=== PATIENT | female | born 1980 | race Caucasian/White ===

== ENCOUNTER 2020-07-26 03:44 | Inpatient (IN) | payer BC, SELFPAY ==
[2020-07-26] MEDS ORDERED: Metoprolol Tartrate 25 MG TAB ONE (04:39)
[2020-07-26] MEDS ORDERED: Metoprolol Tartrate 5 MG/5 ML VIAL ONE ×2 (04:39→06:50)
[2020-07-26 04:45] LABS: #Basophils 0.1 thou/uL (0.0-0.2); #Lymphocytes 3.1 thou/uL (1.20-3.40); #Monocytes 0.8 thou/uL (0.11-0.59); #Neutrophils 2.6 thou/uL (1.40-6.50); %Basophils 0.9 % (0.0-1.0); %Eosinophils 0.1 % (0.0-10.0); %Lymphocytes 47.3 % (21.0-51.0); %Monocytes 11.7 % (0.0-10.0); Hemoglobin 13.9 g/dL (12.0-16.0); Mean Corpuscular Hemoglobin 28.9 pg (27.0-31.0); Mean Corpuscular Volume 87.7 fL (78.0-98.0); Mean Platelet Volume 7.5 fL (7.4-10.4); Platelet Count 277 thou/uL (130-400); RBC Distribution Width 11.6 % (11.5-14.5); Red Blood Cell (RBC) Count 4.79 mill/uL (4.20-5.40); White Blood Cell (WBC) Count 6.5 thou/uL (4.8-10.8)
[2020-07-26 04:55] LABS: ALT (SGPT) 44 U/L (8-55); AST (SGOT) 29 U/L (5-34); Albumin 3.6 g/dL (3.5-5.0); Alkaline Phosphatase 202 U/L (40-110); Anion Gap 14 mmol/L (10-20); BUN (Urea Nitrogen) 16 mg/dL (7.0-18.7); Bilirubin, Total 0.3 mg/dL (0.2-1.2); Calc. Creatinine Clearance 0 mL/min (70-130); Calcium 8.8 mg/dL (7.8-10.44); Carbon Dioxide 25 mmol/L (22-29); Chloride 104 mmol/L (98-107); Globulin 3.5 g/dL (2.4-3.5); Glucose 101 mg/dL (70-105); Potassium 4.1 mmol/L (3.5-5.1); Protein, Total 7.1 g/dL (6.0-8.3); Sodium 139 mmol/L (136-145)
[2020-07-26 05:12] LABS: Free T4 (Free Thyroxine) 2.61 ng/dL (0.70-1.48); Thyroid Stimulating Hormone Less than 0.0025 uIU/mL (0.35-4.94)
[2020-07-26] MEDS ORDERED: Lorazepam 2 MG/ML VIAL ONE (06:48)
--- NOTE | 2020-07-26 09:10 | PDOC.HHP ---
Hospitalist HPI - History of Present Illness Fast heart rate History of Present Illness: Ms. Leal is a 39-year-old female with past medical history of degenerative disc disease, tobacco use who presents to the emergency room for evaluation of a fast heart rate. Patient believes this is related to her thyroid. Patient reports that over the past 2 years she has had an increased elevated resting heart rate of about 110. She also reports that she has had significant weight loss over the past 2 years increased appetite, and chronic diarrhea. Over the past 4 months she has noticed a bulging of her eyes, and has episodes where she temporarily has blurry vision and when she takes pressure resolve her eyes will go in different directions. She has said that her heart rate has been elevated as high as the 220s at certain points in time. She has a nurse friend who thought that her symptoms might be related to her thyroid, however patient has delayed seeking treatment since she has no health insurance. Patient does report that she had thyroid problems as a child but is unsure what these were. She has never had evaluation of her thyroid as an adult. Her mother also has a history of thyroid problems, and she does have a cousin with thyroid cancer. Emergency room initial vital signs 141/84, 103, 23, 98.3, 98% on room air. EKG showed normal sinus rhythm with no ischemic changes. TSH was less than 0.0025, T4 2.61, T3 14.99. BUNs/CR 16/0.63, sodium 139, potassium 4.1. H/H 13.9/42.0. WBC 6.5. Patient received propanolol, Lopressor, Ativan in the emergency room. Hospitalist ROS - Review of Systems Constitutional: reports: other (Weight loss). denies: fever, chills, sweats, weakness, malaise Eyes: reports: vision change, other (exopthalmos, blurry vision). denies: pain, conjunctivae inflammation, eyelid inflammation, redness ENT: denies: ear pain, ear discharge, nose pain, nose discharge, nose congestion, mouth pain, mouth swelling, throat pain, throat swelling, other Respiratory: denies: cough, dry, shortness of breath, hemoptysis, SOB with excertion, pleuritic pain, sputum, wheezing, other Cardiovascular: reports: palpitations. denies: chest pain, orthopnea, paroxysmal noc. dyspnea, edema, light headedness, other Gastrointestinal: reports: diarrhea, other (Increased appetite). denies: nausea, vomiting, abdominal pain, constipation, melena, hematochezia Genitourinary: denies: dysuria, frequency, incontinence, hematuria, retention, other Musculoskeletal: denies: neck pain, shoulder pain, arm pain, back pain, hand pain, leg pain, foot pain, other Skin: denies: rash, lesions, zahida, bruising, other Neurological: reports: other (Anxiety). denies: weakness, numbness, incoor dination, change in speech, confusion, seizures - Medication Medications: Patient is not currently on any medications Hospitalist History - Past Medical History Other Medical History: Past medical history includes Remote history of thyroid issue as a child (patient unsure) Degenerative disc disease with multiple disc injections Cervical dysplasia status post LEEP - Past Surgical History Other Surgical History: Past surgical history includes Tonsillectomy Right knee ACL repair Neck anterior fusion - Family History Other Family History: Family history includes Thyroid problems in patient's mother Cousin with thyroid cancer - Social History Smoking Status: Current every day smoker Tobacco Type: cigarettes Alcohol: reports: None Drugs: reports: marijuana Living Situation: With Family Activity level: independent ambulation - Exam General Appearance: awake alert General - other findings: Anxious, pressured speech Eye - other findings: Exophthalmos ENT: dry oral mucosa Neck: supple, symmetric, no JVD Neck - other findings: No palpable thyroid nodules Heart: no murmur, no gallops, no rubs, normal peripheral pulses Heart - other findings: Tachycardic Respiratory: CTAB, no wheezes, no rales, no ronchi, normal chest expansion, no tachypnea, normal percussion Gastrointestinal: soft, non-tender, non-distended, normal bowel sounds, no palpable masses, no hepatomegaly, no splenomegaly, no bruit Extremities: no cyanosis, clubbing Skin - other findings: Dry Neurological: cranial nerve grossly intact, normal sensation to touch, no weakness, no focal deficits, no new deficit Musculoskeletal: normal tone, normal strength, no muscle wasting Musculoskeletal - other findings: Thin Psychiatric: A&O x 3 Psychiatric - other findings: Anxious, tremulous Hospitalist Results - Labs Result Diagrams: 07/26/20 04:05 07/26/20 04:05 Lab results: WBC 6.5 thou/uL (4.8-10.8) 07/26/20 04:05 Hgb 13.9 g/dL (12.0-16.0) 07/26/20 04:05 Hct 42.0 % (36.0-47.0) 07/26/20 04:05 MCV 87.7 fL (78.0-98.0) 07/26/20 04:05 Plt Count 277 thou/uL (130-400) 07/26/20 04:05 Neutrophils % 40.0 % (42.0-75.0) L 07/26/20 04:05 Sodium 139 mmol/L (136-145) 07/26/20 04:05 Potassium 4.1 mmol/L (3.5-5.1) 07/26/20 04:05 Chloride 104 mmol/L (98-107) 07/26/20 04:05 Carbon Dioxide 25 mmol/L (22-29) 07/26/20 04:05 BUN 16 mg/dL (7.0-18.7) 07/26/20 04:05 Creatinine 0.63 mg/dL (0.6-1.1) 07/26/20 04:05 Glucose 101 mg/dL (70-105) 07/26/20 04:05 Calcium 8.8 mg/dL (7.8-10.44) 07/26/20 04:05 Total Bilirubin 0.3 mg/dL (0.2-1.2) 07/26/20 04:05 AST 29 U/L (5-34) 07/26/20 04:05 ALT 44 U/L (8-55) 07/26/20 04:05 Alkaline Phosphatase 202 U/L (40-110) H 07/26/20 04:05 Serum Total Protein 7.1 g/dL (6.0-8.3) 07/26/20 04:05 Albumin 3.6 g/dL (3.5-5.0) 07/26/20 04:05 Hospitalist H&P A/P - Plan Plan: 39-year-old female with past medical history of degenerative disc disease, cer vical dysplasia, tobacco use presents with overt hyperthyroidism. Hyperthyroidism Patient reports that over the past 2 years she has had worsening tachycardia, anxiety, weight loss, diarrhea, increased appetite, hair thinning, menstrual irregularities and recently in the past 4 months bulging of her eyes sometimes associated with blurry vision. She has a remote history of thyroid problems as a child although she is unable to remember any specifics. She has no health i nsurance and does not have a primary care provider. She has never been previously diagnosed with thyroid disorder as an adult. Patient in florid hyperthyroidism with TSH less than 0.0025, T42.61, T3 14.99. Not currently meeting criteria for thyroid storm. High suspicion for Graves' disease given constellation of symptoms and orbitopathy. Will check test and start patient on methimazole. Will check TRAb and thryoid US. Patient will need to be set up with primary care provider. Plan Beta-hCG Methimazole if not Atenolol Ativan as needed TRAb TSH, T3, T4 monitoring Hyperthyroid Opthalmopathy High suspicion for Graves' orbitopathy. Patient with significant exophthalmos on exam with history of blurred vision and diplopia. Patient has had episodes of acute swelling and blurring of her vision which are increasing with frequency over the past 4 months. Currently her vision is at baseline with mild chemosis. Will start prednisone PO in addition to treating her hyperthyroidism. Plan Artificial tears -Prednisone 30 mg daily Tobacco use History of tobacco use. Have counseled patient on tobacco cessation, and potential for worsening of her degrees orbitopathy with tobacco use. Will make nicotine patch available for patient. Plan Tobacco cessation counseling Nicotine patch DVT prophylaxis- SCDs FULL CODE
[2020-07-26 10:26] LABS: BHCG - Serum Negative (NEGATIVE); Pregs Control Background? CLEAR/WHITE (CLR/WHITE); Pregs Control Bar Appear? YES (CONTROL BAR)
[2020-07-26] MEDS: Nicotine 14 MG PATCH TD SCH (10:37)
--- NOTE | 2020-07-26 10:37 | ULT ---
THYROID ULTRASOUND INDICATION: Hyperthyroidism TECHNIQUE: Grayscale and color Doppler images were obtained of the thyroid gland. COMPARISON: None FINDINGS: Right thyroid lobe: The right thyroid lobe measures 1.6 x 3.8 x 2.1 cm. There is a 1.2 cm hyperechoic right thyroid lobe nodule. This is centered within the right mid thyroid lobe. There is diffuse increased vascularity. Thyroid isthmus: The thyroid isthmus measures 0.64 cm. Diffuse increased vascularity. Left thyroid lobe: The left thyroid lobe measures 4.3 x 2.6 x 2.3 cm. Diffuse increased vascularity. IMPRESSION: 1. Heterogeneous and hypervascular thyroid gland may reflect underlying thyroiditis. 2. TIRADS 3 nodule in the right thyroid lobe. No thyroid ultrasound follow-up is recommended.
[2020-07-26] MEDS: Lorazepam 2 MG/ML VIAL SLOW IVP PRN ×2 (10:38→17:02)
[2020-07-26 10:48] VITALS: BMI 19.3
[2020-07-26] MEDS ORDERED: FLU VACC QS2020-21(6MOS UP)/PF 60 MCG/0.5 ML SYRINGE IM ONE (13:15)
[2020-07-26 16:13] LABS: Amphetamine Not Detected (NotDetected); Barbiturates Screen Not Detected (NotDetected); Benzodiazepine Screen Detected (NotDetected); Cocaine Metabolite Screen Not Detected (NotDetected); Medtox Control Line Valid? VALID (VALID); Medtox Reader # READER 1; Methadone Not Detected (NotDetected); Methamphetamine Not Detected (NotDetected); Opiate Screen Not Detected (NotDetected); Oxycodone Screen Not Detected (NotDetected); Phencyclidine (PCP) Not Detected (NotDetected); THC/Cannabinoid Screen Not Detected (NotDetected); Tricyclic Screen Not Detected (NotDetected)
[2020-07-26] MEDS: Methimazole 5 MG TAB PO SCH (20:19)
[2020-07-26] MEDS ORDERED: ALPRAZolam 1 MG TAB PO SCH (22:00)
[2020-07-26] MEDS: Artificial Tear Sol 15 ML BOT EA EYE PRN (22:03)
[2020-07-27] MEDS: Acetaminophen 325 MG TAB PO PRN ×2 (01:21→22:46)
[2020-07-27] MEDS: Artificial Tear Sol 15 ML BOT EA EYE PRN ×2 (05:10→20:07)
[2020-07-27] MEDS: Lorazepam 2 MG/ML VIAL SLOW IVP PRN ×2 (05:16→12:02)
[2020-07-27 06:14] LABS: Anion Gap 11 mmol/L (10-20); BUN (Urea Nitrogen) 12 mg/dL (7.0-18.7); Calc. Creatinine Clearance 134 mL/min (70-130); Carbon Dioxide 27 mmol/L (22-29); Chloride 105 mmol/L (98-107); Glucose 115 mg/dL (70-105); Potassium 4.2 mmol/L (3.5-5.1); Sodium 139 mmol/L (136-145)
[2020-07-27 06:23] LABS: Band 5 % (5-11); Hemoglobin 12.7 g/dL (12.0-16.0); Lymphocytes 39 % (21-51); MDiff Complete? YES; Mean Corpuscular HGB CONC 32.3 g/dL (32.0-36.0); Mean Corpuscular Hemoglobin 28.3 pg (27.0-31.0); Mean Corpuscular Volume 87.7 fL (78.0-98.0); Mean Platelet Volume 7.3 fL (7.4-10.4); Metamyelocyte 1 % (0-0); Monocytes 6 % (0-10); Neutrophil 23 % (42-75); Platelet Count 249 thou/uL (130-400); Platelet Morphology Comment Appears Adequate; RBC Distribution Width 11.7 % (11.5-14.5); RBC Morphology Normal; Reactive Lymphocytes 26 % (0-10); Red Blood Cell (RBC) Count 4.49 mill/uL (4.20-5.40); White Blood Cell (WBC) Count 4.8 thou/uL (4.8-10.8)
[2020-07-27 06:34] LABS: Free T4 (Free Thyroxine) 2.11 ng/dL (0.70-1.48); Thyroid Stimulating Hormone Less than 0.0025 uIU/mL (0.35-4.94)
[2020-07-27] MEDS: predniSONE 20 MG TAB PO SCH (08:14)
[2020-07-27] MEDS: Atenolol 25 MG TAB PO SCH (08:14)
[2020-07-27] MEDS: Nicotine 14 MG PATCH TD SCH (08:16)
[2020-07-27] MEDS: Methimazole 5 MG TAB PO SCH ×2 (08:16→20:06)
[2020-07-27] MEDS ORDERED: hydrALAZINE 20 MG/ML VIAL SLOW IVP PRN (10:09)
--- NOTE | 2020-07-27 15:29 | PDOC.HOSPP ---
- Subjective Encounter Date: 07/27/20 Encounter Time: 11:45 Subjective: Patient feels that she is very agitated. And she is wondering whether she can see food and beverage coordinator for her eye bulging. She is concerned whether there is any specific thyroid related to eye disease. Ultrasound of thyroid heterogeneous with a small nodule. Hypervascularity. - Objective Vital Signs & Weight: Vital Signs (12 hours) Temp Pulse Resp BP BP Pulse Ox 07/27/20 11:53 97.9 F 115 H 18 121/65 99 07/27/20 08:20 97 07/27/20 08:14 99 125/70 07/27/20 07:29 98.6 F 93 20 156/91 H 99 07/27/20 04:30 98 F 90 18 120/80 98 Weight Weight 142 lb 14.4 oz I&O: 07/26/20 07/27/20 07/28/20 06:59 06:59 06:59 Intake Total 720 240 Balance 720 240 Result Diagrams: 07/27/20 05:30 07/27/20 05:30 Hospitalist ROS - Medication Medications: Active Medications Generic Name Dose Route Start Last Admin Trade Name Freq PRN Reason Stop Dose Admin Acetaminophen 650 mg 07/26/20 08:58 07/27/20 01:21 Acetaminophen 325 Mg Tab PO 650 mg Q4H PRN Administration Headache/Fever/Mild Pain (1-3) Artificial Tears 2 drop 07/26/20 09:42 07/27/20 05:10 Artificial Tear Jayleen 15 Ml Bot EA EYE 2 drop QID PRN Administration Dry Eyes Atenolol 25 mg 07/27/20 09:00 07/27/20 08:14 Atenolol 25 Mg Tab PO 25 mg DAILY ROSSANA Administration Lorazepam 1 mg 07/26/20 09:39 07/27/20 12:02 Lorazepam 2 Mg/Ml Vial SLOW IVP 1 mg Q6H PRN Administration Anxiety/Agitation Methimazole 20 mg 07/26/20 21:00 07/27/20 08:16 Methimazole 5 Mg Tab PO 20 mg BID ROSSANA Administration Nicotine 14 mg 07/26/20 09:00 07/27/20 08:16 Nicotine 14 Mg Patch TD Not Given Q24HR ROSSANA Prednisone 30 mg 07/27/20 08:00 07/27/20 08:14 Prednisone 20 Mg Tab PO 30 mg QAM-WM ROSSANA Administration - Exam General Appearance: NAD, awake alert General - other findings: Exophthalmos ENT: normocephalic atraumatic Neck: supple Heart: RRR, normal peripheral pulses Respiratory: CTAB, normal chest expansion Gastrointestinal: soft, normal bowel sounds Neurological: cranial nerve grossly intact, no focal deficits Psychiatric: A&O x 3 Hosp A/P - Plan 39-year-old female with past medical history of degenerative disc disease, cervical dysplasia, tobacco use presents with overt hyperthyroidism. Hyperthyroidism 2 years - worsening tachycardia, anxiety, weight loss, diarrhea, increased appetite, hair thinning, menstrual irregularities and recently in the past 4 months bulging of her eyes sometimes associated with blurry vision. S - TSH less than 0.0025, T42.61, T3 14.99. -Ultrasound of thyroid heterogeneous and one nodule and hypervascularity -Prednisone and methimazole as well as on atenolol. Hyperthyroid Opthalmopathy High suspicion for Graves' orbitopathy. Patient with significant exophthalmos on exam with history of blurred vision and diplopia. Patient has had episodes of acute swelling and blurring of her vision which are increasing with frequency over the past 4 months. Currently her vision is at baseline with mild chemosis. Will start prednisone PO in addition to treating her hyperthyroidism. --May need outpatient ophthalmology follow-up. Tobacco use History of tobacco use. Have counseled patient on tobacco cessation, and potential for worsening of her degrees orbitopathy with tobacco use. Will make nicotine patch available for patient. Plan Tobacco cessation counseling Nicotine patch DVT prophylaxis- SCDs FULL CODE
[2020-07-27] MEDS: Lorazepam 1 MG TAB PO PRN ×2 (17:24→20:40)
[2020-07-27] MEDS ORDERED: Melatonin 3 MG TAB PO PRN (19:42)
[2020-07-28 06:11] LABS: #Basophils 0.1 thou/uL (0.0-0.2); #Lymphocytes 4.1 thou/uL (1.20-3.40); #Monocytes 0.8 thou/uL (0.11-0.59); #Neutrophils 4.9 thou/uL (1.40-6.50); %Basophils 0.9 % (0.0-1.0); %Eosinophils 0.1 % (0.0-10.0); %Lymphocytes 41.5 % (21.0-51.0); %Monocytes 7.7 % (0.0-10.0); %Neutrophils 49.7 % (42.0-75.0); Hemoglobin 12.7 g/dL (12.0-16.0); Mean Corpuscular HGB CONC 32.3 g/dL (32.0-36.0); Mean Corpuscular Hemoglobin 28.8 pg (27.0-31.0); Mean Platelet Volume 7.3 fL (7.4-10.4); Platelet Count 229 thou/uL (130-400); RBC Distribution Width 11.7 % (11.5-14.5); Red Blood Cell (RBC) Count 4.42 mill/uL (4.20-5.40); White Blood Cell (WBC) Count 9.8 thou/uL (4.8-10.8)
[2020-07-28 06:30] LABS: Anion Gap 12 mmol/L (10-20); BUN (Urea Nitrogen) 14 mg/dL (7.0-18.7); Calc. Creatinine Clearance 125 mL/min (70-130); Calcium 8.5 mg/dL (7.8-10.44); Carbon Dioxide 25 mmol/L (22-29); Chloride 105 mmol/L (98-107); Glucose 161 mg/dL (70-105); Potassium 4.2 mmol/L (3.5-5.1); Sodium 138 mmol/L (136-145)
[2020-07-28] MEDS: Nicotine 14 MG PATCH TD SCH (07:18)
[2020-07-28] MEDS: predniSONE 20 MG TAB PO SCH (07:27)
[2020-07-28] MEDS: Atenolol 25 MG TAB PO SCH (07:28)
[2020-07-28] MEDS: Methimazole 5 MG TAB PO SCH ×2 (07:29→20:38)
[2020-07-28] MEDS: Acetaminophen 325 MG TAB PO PRN (07:36)
[2020-07-28] MEDS: traMADol HCl 50 MG TAB PO PRN ×3 (10:00→19:19)
--- NOTE | 2020-07-28 13:22 | PDOC.HOSPP ---
- Subjective Encounter Date: 07/28/20 Encounter Time: 11:10 Subjective: Patient is doing well she is tachycardia otherwise no issues she is states that the pain in the eyes. No change in her vision. No ophthalmology available during the weekend. Given her Graves' disease associated, she needs to see outpatient design tech and patient notes that there is one in [place] area - Objective Vital Signs & Weight: Vital Signs (12 hours) Temp Pulse Resp BP Pulse Ox 07/28/20 11:00 98.5 F 104 H 18 115/65 98 07/28/20 07:32 97.3 F L 99 20 130/90 100 07/28/20 07:28 114 H 07/28/20 01:50 99 Weight Admit Weight 142 lb 14.4 oz Weight 142 lb 14.4 oz I&O: 07/27/20 07/28/20 07/29/20 06:59 06:59 06:59 Intake Total 720 1620 Balance 720 1620 Result Diagrams: 07/28/20 05:54 07/28/20 05:54 Hospitalist ROS - Medication Medications: Active Medications Generic Name Dose Route Start Last Admin Trade Name Freq PRN Reason Stop Dose Admin Acetaminophen 650 mg 07/26/20 08:58 07/28/20 07:36 Acetaminophen 325 Mg Tab PO 650 mg Q4H PRN Administration Headache/Fever/Mild Pain (1-3) Artificial Tears 2 drop 07/26/20 09:42 07/27/20 20:07 Artificial Tear Jayleen 15 Ml Bot EA EYE 2 drop QID PRN Administration Dry Eyes Melatonin 3 mg 07/27/20 19:42 07/27/20 20:07 Melatonin 3 Mg Tab PO 3 mg HS PRN Administration Insomnia Methimazole 20 mg 07/26/20 21:00 07/28/20 07:29 Methimazole 5 Mg Tab PO 20 mg BID ROSSANA Administration Nicotine 14 mg 07/26/20 09:00 07/28/20 07:18 Nicotine 14 Mg Patch TD Not Given Q24HR ROSSANA Prednisone 30 mg 07/27/20 08:00 07/28/20 07:27 Prednisone 20 Mg Tab PO 30 mg QAM-WM ROSSANA Administration Tramadol HCl 50 mg 07/28/20 09:41 07/28/20 10:00 Tramadol Hcl 50 Mg Tab PO 50 mg Q6H PRN Administration Pain - Exam General Appearance: NAD, awake alert Eye: PERRL ENT: normocephalic atraumatic Neck: supple Respiratory: CTAB, normal chest expansion Gastrointestinal: soft, normal bowel sounds Extremities: 1+ LE edema Skin: normal turgor Neurological: cranial nerve grossly intact, no focal deficits Psychiatric: A&O x 3 Hosp A/P - Plan 39-year-old female with past medical history of degenerative disc disease, cervical dysplasia, tobacco use presents with overt hyperthyroidism. Hyperthyroidism 2 years - worsening tachycardia, anxiety, weight loss, diarrhea, increased appetite, hair thinning, menstrual irregularities and recently in the past 4 months bulging of her eyes sometimes associated with blurry vision. S - TSH less than 0.0025, T42.61, T3 14.99. -Ultrasound of thyroid heterogeneous and one nodule and hypervascularity -Prednisone and methimazole as well as on atenolol. Hyperthyroid Opthalmopathy High suspicion for Graves' orbitopathy. Patient with significant exophthalmos on exam with history of blurred vision and diplopia. Patient has had episodes of acute swelling and blurring of her vision which are increasing with frequency over the past 4 months. Currently her vision is at baseline with mild chemosis. Will start prednisone PO in addition to treating her hyperthyroidism. --May need outpatient ophthalmology follow-up. Tobacco use History of tobacco use. Have counseled patient on tobacco cessation, and potential for worsening of her degrees orbitopathy with tobacco use. Will make nicotine patch available for patient. Plan Tobacco cessation counseling Nicotine patch DVT prophylaxis- SCDs FULL CODE Repeating the TSH and free T4 and getting random cortisol level. DC atenolol and started her on propanolol twice a day dose She can follow-up with ophthalmology as an outpatient clinic.
[2020-07-28] MEDS: Artificial Tear Sol 15 ML BOT EA EYE PRN (20:37)
[2020-07-28] MEDS: Propranolol HCl 20 MG TAB PO SCH (20:39)
[2020-07-28] MEDS: Lorazepam 1 MG TAB PO PRN (20:47)
[2020-07-28] MEDS ORDERED: Propranolol 10 MG TAB PO SCH (21:00)
[2020-07-29] MEDS: Lorazepam 1 MG TAB PO PRN ×5 (00:16→21:28)
[2020-07-29] MEDS: traMADol HCl 50 MG TAB PO PRN ×5 (01:21→16:00)
[2020-07-29 06:32] LABS: #Basophils 0.1 thou/uL (0.0-0.2); #Lymphocytes 4.4 thou/uL (1.20-3.40); #Monocytes 0.7 thou/uL (0.11-0.59); #Neutrophils 3.9 thou/uL (1.40-6.50); %Basophils 1.3 % (0.0-1.0); %Eosinophils 0.1 % (0.0-10.0); %Lymphocytes 47.8 % (21.0-51.0); %Monocytes 7.8 % (0.0-10.0); Hemoglobin 12.3 g/dL (12.0-16.0); Mean Corpuscular HGB CONC 31.8 g/dL (32.0-36.0); Mean Corpuscular Hemoglobin 28.2 pg (27.0-31.0); Mean Corpuscular Volume 88.6 fL (78.0-98.0); Mean Platelet Volume 7.4 fL (7.4-10.4); Platelet Count 244 thou/uL (130-400); RBC Distribution Width 11.8 % (11.5-14.5); Red Blood Cell (RBC) Count 4.37 mill/uL (4.20-5.40); White Blood Cell (WBC) Count 9.1 thou/uL (4.8-10.8)
[2020-07-29 06:54] LABS: Anion Gap 12 mmol/L (10-20); BUN (Urea Nitrogen) 12 mg/dL (7.0-18.7); Calc. Creatinine Clearance 128 mL/min (70-130); Calcium 8.6 mg/dL (7.8-10.44); Carbon Dioxide 28 mmol/L (22-29); Chloride 102 mmol/L (98-107); Glucose 100 mg/dL (70-105); Potassium 4.2 mmol/L (3.5-5.1); Sodium 138 mmol/L (136-145)
[2020-07-29 07:08] LABS: Free T4 (Free Thyroxine) 1.51 ng/dL (0.70-1.48); Thyroid Stimulating Hormone Less than 0.0025 uIU/mL (0.35-4.94)
[2020-07-29] MEDS: Nicotine 14 MG PATCH TD SCH (08:15)
[2020-07-29] MEDS: predniSONE 20 MG TAB PO SCH (08:42)
[2020-07-29] MEDS: Methimazole 5 MG TAB PO SCH ×2 (08:42→21:49)
[2020-07-29] MEDS: Propranolol HCl 20 MG TAB PO SCH ×2 (09:00→21:26)
[2020-07-29] MEDS ORDERED: Iopamidol-370 76% 500 ML 1 ML ONE (09:40)
[2020-07-29] MEDS ORDERED: Cosyntropin 250 MCG VIAL SLOW IVP SCH (10:00)
--- NOTE | 2020-07-29 13:31 | PDOC.HOSPP ---
- Subjective Encounter Date: 07/29/20 Encounter Time: 09:20 Subjective: Patient doing well she is resting. Possibly Dr. Cerda wire strander would visit her. Her TSH and free T4 pretty much remains the same 2 days before. Her pulse is better less than 100 range. - Objective Vital Signs & Weight: Vital Signs (12 hours) Temp Pulse Resp BP Pulse Ox 07/29/20 08:00 99 07/29/20 07:47 98.5 F 91 18 105/57 L 99 07/29/20 06:31 94 102/64 Weight Admit Weight 142 lb 14.4 oz Weight 142 lb 14.4 oz I&O: 07/28/20 07/29/20 07/30/20 06:59 06:59 06:59 Intake Total 1620 1000 240 Balance 1620 1000 240 Result Diagrams: 07/29/20 06:06 07/29/20 06:06 Hospitalist ROS - Medication Medications: Active Medications Generic Name Dose Route Start Last Admin Trade Name Freq PRN Reason Stop Dose Admin Acetaminophen 650 mg 07/26/20 08:58 07/28/20 07:36 Acetaminophen 325 Mg Tab PO 650 mg Q4H PRN Administration Headache/Fever/Mild Pain (1-3) Artificial Tears 2 drop 07/26/20 09:42 07/28/20 20:37 Artificial Tear Jayleen 15 Ml Bot EA EYE 2 drop QID PRN Administration Dry Eyes Lorazepam 2 mg 07/28/20 09:35 07/29/20 10:02 Lorazepam 1 Mg Tab PO 2 mg Q4H PRN Administration Anxiety/Agitation Melatonin 3 mg 07/27/20 19:42 07/27/20 20:07 Melatonin 3 Mg Tab PO 3 mg HS PRN Administration Insomnia Methimazole 20 mg 07/26/20 21:00 07/29/20 08:42 Methimazole 5 Mg Tab PO 20 mg BID ROSSANA Administration Nicotine 14 mg 07/26/20 09:00 07/29/20 08:15 Nicotine 14 Mg Patch TD Not Given Q24HR ROSSANA Prednisone 30 mg 07/27/20 08:00 07/29/20 08:42 Prednisone 20 Mg Tab PO 30 mg QAM-WM ROSSANA Administration Propranolol HCl 20 mg 07/28/20 21:00 07/29/20 09:00 Propranolol Hcl 20 Mg Tab PO 20 mg BID ROSSANA Administration Tramadol HCl 50 mg 07/29/20 12:00 07/29/20 12:09 Tramadol Hcl 50 Mg Tab PO 50 mg Q4H PRN Administration Pain 6-10 - Exam General Appearance: awake alert Eye: PERRL Eye - other findings: Exophthalmos ENT: normocephalic atraumatic Neck: supple Heart: RRR Respiratory: CTAB, normal chest expansion Gastrointestinal: soft, non-distended, normal bowel sounds Neurological: cranial nerve grossly intact, no focal deficits Psychiatric: A&O x 3 Hosp A/P - Plan 39-year-old female with past medical history of degenerative disc disease, cervical dysplasia, tobacco use presents with overt hyperthyroidism. Hyperthyroidism 2 years - worsening tachycardia, anxiety, weight loss, diarrhea, increased appetite, hair thinning, menstrual irregularities and recently in the past 4 months bulging of her eyes sometimes associated with blurry vision. S - TSH less than 0.0025, T42.61, T3 14.99. -Ultrasound of thyroid heterogeneous and one nodule and hypervascularity -Prednisone and methimazole as well as on atenolol. Hyperthyroid Opthalmopathy High suspicion for Graves' orbitopathy. Patient with significant exophthalmos on exam with history of blurred vision and diplopia. Patient has had episodes of acute swelling and blurring of her vision which are increasing with frequency over the past 4 months. Currently her vision is at baseline with mild chemosis. Will start prednisone PO in addition to treating her hyperthyroidism. --May need outpatient ophthalmology follow-up. Tobacco use History of tobacco use. Have counseled patient on tobacco cessation, and potential for worsening of her degrees orbitopathy with tobacco use. Will make nicotine patch available for patient. Plan Tobacco cessation counseling Nicotine patch DVT prophylaxis- SCDs FULL CODE Repeating the TSH and free T4 and getting random cortisol level. DC atenolol and started her on propanolol twice a day dose I talked to wire strander Dr. Feroz Cerda on . He is kind enough to visit her possibly today
--- NOTE | 2020-07-29 19:01 | CT ---
CT orbits with contrast: 07/29/2020 HISTORY: 39-year-old female with thyroid eye disease. Pain and inflammation of the eyes. FINDINGS: There is diffuse, significant enlargement of all of the extraocular muscles. The enlargement is great est involving the inferior rectus, followed by medial rectus, then superior rectus. The bilateral lacrimal glands are symmetrically mildly enlarged. There is bilateral proptosis. The bilateral globes are slightly distorted, not perfectly spherical, presumably from increased press ure. Mild fat stranding within the orbits, both intraconal and extraconal. The paranasal sinuses are clear. No fracture. 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
[2020-07-29] MEDS ORDERED: HYDROcodone/Acetaminophen 5/325 mg Tablet PO SCH (22:00)
[2020-07-30] MEDS: traMADol HCl 50 MG TAB PO PRN (06:06)
[2020-07-30] MEDS: predniSONE 20 MG TAB PO SCH (08:26)
[2020-07-30] MEDS: Propranolol HCl 20 MG TAB PO SCH (08:27)
[2020-07-30] MEDS: Nicotine 14 MG PATCH TD SCH (08:33)
[2020-07-30] MEDS: Lorazepam 1 MG TAB PO PRN (08:37)
[2020-07-30 10:47] VITALS: BP 114/66; TEMP 98.2
[2020-07-30] MEDS: Methimazole 5 MG TAB PO SCH (11:40)
--- NOTE | 2020-07-30 13:30 | PDOC.DS.DS ---
Provider - Provider Date of Admission: 07/26/20 13:04 Admitting Provider: Everette Farfan MD Primary Care Physician: NO PCP PROVIDER Course - Hospital Course Hospital Course: 39-year-old female with past medical history of degenerative disc disease, cervical dysplasia, tobacco use presents with overt hyperthyroidism. Hyperthyroidism 2 years - worsening tachycardia, anxiety, weight loss, diarrhea, increased appetite, hair thinning, menstrual irregularities and recently in the past 4 months bulging of her eyes sometimes associated with blurry vision. S - TSH less than 0.0025, T42.61, T3 14.99. -Ultrasound of thyroid heterogeneous and one nodule and hypervascularity -Prednisone and methimazole as well as on propanolol. Hyperthyroid Opthalmopathy High suspicion for Graves' orbitopathy. Patient with significant exophthalmos on exam with history of blurred vision and diplopia. Patient has had episodes of acute swelling and blurring of her vision which are increasing with frequency over the past 4 months. Currently her vision is at baseline with mild chemosis. Will start prednisone PO in addition to treating her hyperthyroidism. 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 I discussed this point with wood fence installer and there is no immediate intervention other than continuing with the steroid. Consulted wood fence installer Dr. Feroz Cerda; he will follow-up as an outpatient. He is agreeable with the prednisone 30 mg daily until the patient seen him in the clinic. Discharge plan discussed in detail with the patient including that she needs to set up with primary care physician soon and needs follow-up TSH free T4 in 1 to 2 weeks Discharge time took over 30 minutes. Resuscitation Status: 07/26/20 08:58 Resuscitation Status Routine Co-Sign Provider: Resuscitation Status: FULL: Full Resuscitation - Labs Lab Results: 07/29/20 06:06 07/29/20 06:06 Abnormal Lab Results - Last 48 hrs 07/26/20 10:03: TSH Receptor Ab 14.30 H 07/29/20 06:06: MCHC 31.8 L, Basophils % 1.3 H, Lymphocytes # 4.4 H, Monocytes # 0.7 H 07/29/20 06:06: Free T4 1.51 H, TSH 3rd Generation Less than 0.0025 L - Physical Exam Vitals: Vital Signs (12 hours) Temp Pulse Resp BP Pulse Ox 07/30/20 08:00 98.2 F 104 H 16 114/66 98 Weight Admit Weight 142 lb 14.4 oz Weight 142 lb 14.4 oz Physical Exam: The patient was seen and examined on the day of discharge. Family is at bedside. I talked to Dr. Feroz Cerda a wood fence installer and he will follow her for exophthalmos related to Graves' disease. Patient does not have insurance and she would not be able to see other wood fence installer either in [place] or [place]. Plan explained to her that she needs to find a primary care physician sooner to follow-up. Weekly on her hyperthyroidism/Graves' disease. I also explained to her that she needs to follow-up with the labs TSH and free T4.she mentioned that she can walk into free clinic and hopefully they will be able to help her as currently she has trouble getting insurance at this point. Plan - Discharge Medications Prescriptions: Propranolol HCl [Inderal] 20 mg PO BID 30 Days #60 tab Methimazole 10 mg PO BID 30 Days #60 tab predniSONE 30 mg PO QAM-WM 30 Days #30 tab Home Medications: Medication Instructions Recorded Confirmed Type Methimazole 10 mg PO BID 30 Days #60 tab 07/30/20 Rx Propranolol HCl [Inderal] 20 mg PO BID 30 Days #60 tab 07/30/20 Rx predniSONE 30 mg PO QAM-WM 30 Days #30 tab 07/30/20 Rx Allergies: benzonatate [From Tessalon Perles] Allergy (Verified 04/25/13 09:30) cefaclor [From Ceclor] Allergy (Verified 04/25/13 09:29) Cephalosporins Allergy (Verified 04/25/13 09:30) naproxen Allergy (Verified 04/25/13 09:30) Penicillins Allergy (Verified 04/25/13 09:29) - Discharge Instructions Discharge Instructions:: You will need Primary Care Physician for periodic follow up on hyperthyroid. Please follow up with Dr. Villasenor, opthalmologist in 1 to 2 weeks. You have to check your thyroid labs, TSH and free T4 atleast in 10 days and thyroid med dose have to be adjusted based on the results Activity:: Activity as Tolerated Nourishment:: Regular Diet - Follow up Plan Referrals: Feroz Villasenor MD [Active] - (1-2 weeks. ) PROVIDER,NO PCP [Primary Care Provider] - Disposition: HOME Quality - Care Measures CORE MEASURES:: N/A
--- NOTE | 2020-08-01 07:43 | CON ---
DATE OF CONSULTATION: 07/26/2020 TIME OF CONSULTATION: 2 p.m. REASON FOR CONSULTATION: Thyroid eye disease. HISTORY OF PRESENT ILLNESS: The patient is a 39-year-old woman who for the past 2 years has developing worsening symptoms of tachycardia, weight loss, increased appetite, and chronic diarrhea. In the last 3-4 months, she has noticed bulging of her eyes and worsening intermittent diplopia which is resolved by looking down and tilting her head to the left when she is driving. PHYSICAL EXAMINATION: Visual acuity at near is J-3 (20/40) right eye and J-2 (20/30) for the left eye. This is with a +2.00 correction for near vision. Intraocular pressure was 14 mmHg right and 11 mmHg left. Pupils are equal and reactive without an afferent pupillary defect. On motility testing, both eyes have reduced upgaze. The left eye has reduced abduction. Both eyes are proptotic. Petros exophthalmometer with a base of 96 mm reads 26 mm for the right eye and 25 mm for the left eye. Her pupils were not dilated for fundus exam, and on limited exam, both optic nerves appear normal and flat. 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 PLAN: She is currently on prednisone 30 mg per day, and she will need to use this on a long-term basis with gradual later tapering, through followup in my office. Job ID: [id number]
== END 2020-07-30 13:28 | disposition home or self-care (01) | DRG 644 ==
LOC: ERS 03:44 → T4-A 08:03 → OBSVTOIN 13:04
PROVIDERS: ADMIT Student in an Organized Health Care Education/Training Program; ATTEND Internal Medicine
DX: E05.00 Thyrotoxicosis with diffuse goiter without thyrotoxic crisis or storm (principal); Z68.1 Body mass index [BMI] 19.9 or less, adult; Z20.828 Contact with and (suspected) exposure to other viral communicable diseases; M50.30 Other cervical disc degeneration, unspecified cervical region; F17.210 Nicotine dependence, cigarettes, uncomplicated; R63.4 Abnormal weight loss; F41.9 Anxiety disorder, unspecified; Z88.0 Allergy status to penicillin; Z88.8 Allergy status to other drugs, medicaments and biological substances; Z88.1 Allergy status to other antibiotic agents
CPT/HCPCS: 36415; 70481; 76536; 80048; 80053; 80306; 80400; 82533; 84238; 84439; 84443; 84481; 84703; 85025; 93005; 96374; 96375; 96376; G0378; J0834; J2060; J7512; Q9967